=== PATIENT | female | born 1970 | race African-American/Black ===

== ENCOUNTER 2020-11-03 06:05 | Day surgery (SDC) | payer OTHER ==
[2020-10-27 18:39] VITALS: BMI 29.4
[2020-11-03] MEDS ORDERED: MIDAZOLAM HCL 2 MG/2 ML SINGLE DOSE VIAL ONE ×2 (06:51→08:44)
[2020-11-03] MEDS ORDERED: DEXAMETHASONE SOD PHOSPHATE 10 MG/1 ML VIAL ONE (06:51)
[2020-11-03] MEDS ORDERED: ROPIVACAINE HCL 0.5% 30ML VIAL ONE (06:51)
[2020-11-03] MEDS ORDERED: PROPOFOL 20 ML ONE ×2 (07:24)
[2020-11-03] MEDS ORDERED: ceFAZolin SODIUM 1 GM VIAL ONE (08:32)
[2020-11-03] MEDS ORDERED: DEXAMETHASONE SOD PHOSPHATE 4 MG/1 ML VIAL ONE (08:47)
[2020-11-03] MEDS ORDERED: ONDANSETRON 4 MG/2 ML VIAL ONE (09:13)
[2020-11-03] MEDS ORDERED: ONDANSETRON 4 MG/2 ML VIAL IVPUSH PRN (09:28)
[2020-11-03] MEDS ORDERED: oxyCODONE HCL 5 MG TABLET PO PRN (09:28)
[2020-11-03] MEDS ORDERED: LACTATED RINGERS SOLUTION 1,000 ML IV SCH (09:30)
[2020-11-03 11:29] VITALS: BP 128/80; PULSE 77; TEMP 97.9
== END 2020-11-03 11:29 | disposition home or self-care (01) ==
LOC: FASU 06:05
PROVIDERS: ATTEND Orthopaedic Surgery
PROC: 0PB94ZZ Excision of Right Clavicle, Percutaneous Endoscopic Approach (ICD-10-PCS; 2020-11-03)
PROC: 0RQJ4ZZ Repair Right Shoulder Joint, Percutaneous Endoscopic Approach (ICD-10-PCS; 2020-11-03)
PROC: 0PB94ZZ Excision of Right Clavicle, Percutaneous Endoscopic Approach (ICD-10-PCS; 2020-11-03)
PROC: 0RBJ4ZZ Excision of Right Shoulder Joint, Percutaneous Endoscopic Approach (ICD-10-PCS; principal; 2020-11-03 08:45)
DX: S43.431A Superior glenoid labrum lesion of right shoulder, initial encounter (principal); M25.611 Stiffness of right shoulder, not elsewhere classified; M75.101 Unspecified rotator cuff tear or rupture of right shoulder, not specified as traumatic; M94.211 Chondromalacia, right shoulder; M24.011 Loose body in right shoulder; M67.211 Synovial hypertrophy, not elsewhere classified, right shoulder; M75.41 Impingement syndrome of right shoulder; M75.01 Adhesive capsulitis of right shoulder; X58.XXXA Exposure to other specified factors, initial encounter; Y93.9 Activity, unspecified; Y92.9 Unspecified place or not applicable
CPT/HCPCS: 81025; 94760; J1100